=== PATIENT | female | born 1935 | race Caucasian/White ===

== ENCOUNTER 2019-12-28 02:16 | Inpatient (IN) ==
[2019-12-28] MEDS ORDERED: *HR* FentaNYL (PF) 100 MCG/2 ML VIAL IVP STA (02:21)
[2019-12-28] MEDS ORDERED: 0.9 % Sodium Chloride 500 ML IVC ONE (02:21)
[2019-12-28 02:43] LABS: Basophils # 0.1 K/mcL (0.0-0.2); Basophils % 1.3 %; Eosinophils # 0.1 K/mcL (0.0-0.6); Eosinophils % 1.3 %; Hematocrit 47.3 % (35.3-44.9); Hemoglobin 15.2 g/dL (11.5-15.4); INR 2.4; Immature Granulocytes % 0.4 % (0-4); Lymphocytes # 1.6 K/mcL (0.6-4.6); Mean Corpuscular HGB Conc 32.1 g/dL (31.6-35.5); Mean Corpuscular Hemoglobin 30.4 pg (28.0-33.3); Mean Corpuscular Volume 94.6 fL (83.0-100.0); Mean Platelet Volume 10.8 fL (9.4-12.4); Monocytes # 0.4 K/mcL (0.0-1.3); Neutrophils # 2.5 K/mcL (1.6-8.9); Platelet Count 239 K/mcL (140-400); Prothrombin Time 27.4 Seconds (9.4-12.1); Red Cell Distribution Width 13.5 % (11.5-14.5); White Blood Count 4.6 K/mcL (4.3-11.1)
[2019-12-28 03:03] LABS: Calcium 9.1 mg/dL (8.6-10.3); Potassium 3.3 mEq/L (3.5-5.1)
[2019-12-28] MEDS ORDERED: Ondansetron 4 MG/2 ML VIAL IVP PRN (04:05)
[2019-12-28] MEDS ORDERED: Naloxone 0.4 MG/ML INJ IVP PRN (04:05)
[2019-12-28] MEDS ORDERED: 0.9 % Sodium Chloride 1,000 ML IVC SCH (04:15)
[2019-12-28 06:40] LABS: Adenovirus Not Detected (Not Detect); Coronavirus 229E Not Detected (Not Detect); Coronavirus HKU1 Not Detected (Not Detect); Coronavirus NL63 Not Detected (Not Detect); Coronavirus OC43 Not Detected (Not Detect)
[2019-12-28 06:42] LABS: Bordetella Pertussis Not Detected (Not Detect); Chlamydophila pneumoniae Not Detected (Not Detect); Human Metapneumovirus Not Detected (Not Detect); Human Rhinovirus/Enterovirus Not Detected (Not Detect); Influenza A Subtype 2009 H1 Not Detected (Not Detect); Influenza B Not Detected (Not Detect); Mycoplasma pneumoniae Not Detected (Not Detect); Parainfluenza Virus 1 Not Detected (Not Detect); Parainfluenza Virus 2 Not Detected (Not Detect); Parainfluenza Virus 3 Not Detected (Not Detect); Parainfluenza Virus 4 Not Detected (Not Detect); Respiratory Syncytial Virus Not Detected (Not Detect)
[2019-12-28] MEDS ORDERED: *HR* Phytonadione 10 MG/ML AMPUL SQ ONE (07:29)
[2019-12-28 13:02] LABS: INR 2.8; Prothrombin Time 31.9 Seconds (9.4-12.1)
[2019-12-28] MEDS ORDERED: 0.9 % Sodium Chloride 250 ML IVC SCH (14:00)
[2019-12-28] MEDS: Metoprolol XL (24 HR) Succ 50 MG TAB.ER.24H PO SCH (16:15)
[2019-12-28] MEDS ORDERED: *HR* Phytonadione 5 MG TABLET PO ONE (18:41)
[2019-12-28 22:12] LABS: BUN/Creatinine Ratio 18 (6-26); Blood Urea Nitrogen 14 mg/dL (8-23); Calcium 8.8 mg/dL (8.6-10.3); Carbon Dioxide 27 mEq/L (23-29); Chloride 107 mEq/L (98-107); Glucose 152 mg/dL (70-105); Osmolality,Calculated 293 (280-300); Potassium 3.8 mEq/L (3.5-5.1); Sodium 140 mEq/L (136-145); eGFR For African Americans > 60 (> 60); eGFR For Non-African Americans > 60 (> 60)
[2019-12-29 03:07] LABS: Basophils % 0.8 %; Eosinophils # 0.1 K/mcL (0.0-0.6); Eosinophils % 2.1 %; Hematocrit 46.8 % (35.3-44.9); Hemoglobin 14.5 g/dL (11.5-15.4); Immature Granulocytes % 0.2 % (0-4); Lymphocytes # 0.9 K/mcL (0.6-4.6); Mean Corpuscular Hemoglobin 29.1 pg (28.0-33.3); Mean Corpuscular Volume 93.8 fL (83.0-100.0); Mean Platelet Volume 10.8 fL (9.4-12.4); Monocytes # 0.5 K/mcL (0.0-1.3); Neutrophils # 3.6 K/mcL (1.6-8.9); Platelet Count 209 K/mcL (140-400); Red Blood Count 4.99 M/mcL (3.82-4.97); Red Cell Distribution Width 13.6 % (11.5-14.5); Segmented Neutrophils % 68.9 %; White Blood Count 5.2 K/mcL (4.3-11.1)
[2019-12-29 03:12] LABS: INR 2.1; Prothrombin Time 24.4 Seconds (9.4-12.1)
[2019-12-29 03:27] LABS: BUN/Creatinine Ratio 20 (6-26); Blood Urea Nitrogen 19 mg/dL (8-23); Calcium 8.8 mg/dL (8.6-10.3); Carbon Dioxide 25 mEq/L (23-29); Chloride 108 mEq/L (98-107); Glucose 119 mg/dL (70-105); Osmolality,Calculated 291 (280-300); Potassium 3.9 mEq/L (3.5-5.1); Sodium 139 mEq/L (136-145); eGFR For African Americans > 60 (> 60); eGFR For Non-African Americans 57 (> 60)
[2019-12-29 07:17] LABS: Bilirubin,Urine Negative (Negative); Blood,Urine Moderate (Negative); Clarity,Urine Clear (Clear); Color,Urine Yellow (Yellow); Glucose,Urine (UA) Normal (Normal); Ketones,Urine Negative (Negative); Leukocyte Esterase,Urine Trace (Negative); Mucus,Urine Few per lpf (None-Few); Nitrite,Urine Negative (Negative); Protein,Urine Trace mg/dL (Neg-Trace); Specific Gravity,Urine 1.025 (1.010-1.025); Squamous Epithelial Cell,Urine Few per hpf (None-Few); Urobilinogen,Urine Normal (Normal)
[2019-12-29] MEDS: Metoprolol XL (24 HR) Succ 50 MG TAB.ER.24H PO SCH (08:24)
[2019-12-29] MEDS: DilTIAZem CD (24hr) 120 MG CAP.ER.24H PO SCH ×2 (08:25→14:08)
[2019-12-29] MEDS ORDERED: *HR* LORazepam 1 MG TABLET PO SCH (09:00)
[2019-12-29] MEDS ORDERED: Fluticasone Propionate Nasal 50 MCG/SPRAY BOTTLE NS SCH (09:00)
[2019-12-29] MEDS ORDERED: Pregabalin 75 MG CAPSULE PO SCH (09:00)
[2019-12-29] MEDS ORDERED: *HR* Metoprolol 5 MG/5 ML VIAL IVP ONE ×2 (09:22→11:51)
[2019-12-29] MEDS ORDERED: *HR* FentaNYL (PF) 100 MCG/2 ML VIAL IVP ONE (11:45)
[2019-12-29] MEDS ORDERED: *HR* HYDROmorphone (PF) 1 MG/ML SYRINGE IVP ONE (14:10)
[2019-12-29] MEDS ORDERED: 0.9 % Sodium Chloride 1,000 ML IVC SCH (14:15)
[2019-12-29] MEDS ORDERED: DilTIAZem 50 MG/50 ML IV.SOLN IVC SCH (16:00)
[2019-12-29] MEDS ORDERED: Lidocaine -MPF 2% 2 ML VIAL ONE (17:50)
[2019-12-29] MEDS ORDERED: Dexamethasone 4 MG/ML VIAL ONE (17:50)
[2019-12-29] MEDS ORDERED: *HR* FentaNYL (PF) 100 MCG/2 ML VIAL ONE (17:50)
[2019-12-29] MEDS ORDERED: *HR* Midazolam HCl 2 MG/2 ML VIAL ONE (17:50)
[2019-12-29] MEDS ORDERED: Ondansetron 4 MG/2 ML VIAL ONE (17:50)
[2019-12-29] MEDS ORDERED: Clindamycin 900 MG/50 ML 900 MG/50 ML IV.SOLN IVPB ONE (17:50)
[2019-12-29] MEDS ORDERED: *HR* Propofol 200 MG/20 ML VIAL IVP ONE (17:50)
[2019-12-29] MEDS ORDERED: Lidocaine HCL 4 ML Topical Solution (Laryng-O-Jet Kit Sterile Pak) TP ONE (17:56)
[2019-12-29] MEDS ORDERED: *HR* PHENYLEPHRINE 1,000 MCG/10 ML SYRINGE IVP ONE ×2 (18:16→18:49)
[2019-12-29] MEDS ORDERED: *HR* Enoxaparin 40 MG/0.4 ML SYRINGE SQ ONE (18:33)
[2019-12-29] MEDS ORDERED: Ondansetron 4 MG/2 ML VIAL IVP PRN (19:58)
[2019-12-29] MEDS ORDERED: Naloxone 0.4 MG/ML INJ IVP PRN (19:58)
[2019-12-29] MEDS ORDERED: *HR* Warfarin 2.5 MG TABLET PO SCH (20:00)
[2019-12-29] MEDS: DilTIAZem 50 MG/50 ML IV.SOLN IVC SCH (23:08)
[2019-12-29] MEDS: *HR* LORazepam 1 MG TABLET PO SCH (23:38)
[2019-12-29] MEDS: Clindamycin 900 MG/50 ML 900 MG/50 ML IV.SOLN IVPB SCH (23:40)
[2019-12-30 05:02] LABS: Basophils % 0.1 %; Hematocrit 44.3 % (35.3-44.9); Immature Granulocytes % 0.6 % (0-4); Lymphocytes # 0.5 K/mcL (0.6-4.6); Lymphocytes % 5.6 %; Mean Corpuscular HGB Conc 31.6 g/dL (31.6-35.5); Mean Corpuscular Hemoglobin 29.8 pg (28.0-33.3); Mean Corpuscular Volume 94.3 fL (83.0-100.0); Mean Platelet Volume 11.1 fL (9.4-12.4); Monocytes # 0.6 K/mcL (0.0-1.3); Neutrophils # 7.5 K/mcL (1.6-8.9); Platelet Count 164 K/mcL (140-400); Red Cell Distribution Width 13.5 % (11.5-14.5); Segmented Neutrophils % 86.7 %; White Blood Count 8.6 K/mcL (4.3-11.1)
[2019-12-30 05:08] LABS: INR 1.3
[2019-12-30 05:11] LABS: Activated Partial Thrombo Time 30.3 Seconds (26.0-36.0)
[2019-12-30] MEDS: DilTIAZem 50 MG/50 ML IV.SOLN IVC SCH (05:11)
[2019-12-30 05:12] LABS: BUN/Creatinine Ratio 20 (6-26); Blood Urea Nitrogen 18 mg/dL (8-23); Calcium 8.4 mg/dL (8.6-10.3); Carbon Dioxide 22 mEq/L (23-29); Chloride 107 mEq/L (98-107); Glucose 149 mg/dL (70-105); Osmolality,Calculated 291 (280-300); Potassium 4.2 mEq/L (3.5-5.1); Sodium 138 mEq/L (136-145); eGFR For African Americans > 60 (> 60); eGFR For Non-African Americans 60 (> 60)
[2019-12-30] MEDS ORDERED: *HR* Heparin 5,000 UNIT/ML VIAL IVP PRN ×2 (05:15)
[2019-12-30 05:30] LABS: Heparin anti-factor XA UFH 0.21 IU/mL (0.30-0.70)
[2019-12-30] MEDS: Heparin 25,000UNIT/250ML 1/2NS 25,000 UNIT/250 ML IV.SOLN IVC SCH (06:09)
[2019-12-30] MEDS: Clindamycin 900 MG/50 ML 900 MG/50 ML IV.SOLN IVPB SCH (08:35)
[2019-12-30] MEDS: DilTIAZem CD (24hr) 120 MG CAP.ER.24H PO SCH (08:37)
[2019-12-30] MEDS: Pregabalin 75 MG CAPSULE PO SCH (08:39)
[2019-12-30] MEDS: Metoprolol XL (24 HR) Succ 50 MG TAB.ER.24H PO SCH (08:39)
[2019-12-30] MEDS: Fluticasone Propionate Nasal 50 MCG/SPRAY BOTTLE NS SCH (08:41)
[2019-12-30] MEDS ORDERED: *HR* Metoprolol 5 MG/5 ML VIAL IVP PRN (12:44)
[2019-12-30 15:07] LABS: Albumin 3.2 g/dL (3.5-5.7)
[2019-12-30] MEDS ORDERED: 0.9 % Sodium Chloride 500 ML IV ONE (15:31)
[2019-12-30] MEDS ORDERED: Isovue-370 500 ML BOTTLE IVP ONE (17:06)
[2019-12-30 17:16] LABS: Magnesium 1.6 mg/dL (1.6-2.6); Phosphorous 3.6 mg/dL (2.7-4.5)
[2019-12-30 17:37] LABS: Hematocrit 38.1 % (35.3-44.9)
[2019-12-30 17:39] LABS: Hemoglobin 12.1 g/dL (11.5-15.4)
[2019-12-30] MEDS ORDERED: *HR* Warfarin 2.5 MG TABLET PO ONE (18:00)
[2019-12-30] MEDS ORDERED: Warfarin perPT PO PRN (18:00)
[2019-12-30] MEDS ORDERED: Albumin 25% 25gram/100mL 25 GM/100 ML IV.SOLN IVPB ONE (19:03)
[2019-12-30] MEDS: *HR* LORazepam 1 MG TABLET PO SCH (23:46)
[2019-12-31 07:31] LABS: Hemoglobin 11.4 g/dL (11.5-15.4)
[2019-12-31 07:33] LABS: Immature Platelets 8.8 % (1.1-6.1); Mean Corpuscular HGB Conc 30.8 g/dL (31.6-35.5); Mean Corpuscular Hemoglobin 29.5 pg (28.0-33.3); Mean Corpuscular Volume 95.9 fL (83.0-100.0); Mean Platelet Volume 11.4 fL (9.4-12.4); Red Blood Count 3.86 M/mcL (3.82-4.97); Red Cell Distribution Width 13.7 % (11.5-14.5); White Blood Count 5.3 K/mcL (4.3-11.1)
[2019-12-31 07:36] LABS: INR 1.4; Prothrombin Time 15.4 Seconds (9.4-12.1)
[2019-12-31 07:52] LABS: BUN/Creatinine Ratio 28 (6-26); Blood Urea Nitrogen 28 mg/dL (8-23); Calcium 8.5 mg/dL (8.6-10.3); Carbon Dioxide 23 mEq/L (23-29); Chloride 106 mEq/L (98-107); Glucose 100 mg/dL (70-105); Osmolality,Calculated 288 (280-300); Potassium 3.8 mEq/L (3.5-5.1); Sodium 136 mEq/L (136-145); eGFR For African Americans > 60 (> 60); eGFR For Non-African Americans 52 (> 60)
[2019-12-31] MEDS: Heparin 25,000UNIT/250ML 1/2NS 25,000 UNIT/250 ML IV.SOLN IVC SCH (08:05)
[2019-12-31] MEDS: Pregabalin 75 MG CAPSULE PO SCH (08:06)
[2019-12-31] MEDS: DilTIAZem CD (24hr) 120 MG CAP.ER.24H PO SCH (08:06)
[2019-12-31] MEDS: Metoprolol XL (24 HR) Succ 50 MG TAB.ER.24H PO SCH (08:07)
[2019-12-31] MEDS ORDERED: Perflutren Lipid Microsphere 1.3 ML in 0.9 % Sodium Chloride 8.7 ML IVP PRN (08:37)
[2019-12-31] MEDS: Fluticasone Propionate Nasal 50 MCG/SPRAY BOTTLE NS SCH (14:35)
[2019-12-31] MEDS ORDERED: *HR* Warfarin 2.5 MG TABLET PO ONE (18:00)
[2019-12-31] MEDS: *HR* LORazepam 1 MG TABLET PO SCH (20:47)
[2020-01-01 04:54] LABS: Hematocrit 35.8 % (35.3-44.9); Hemoglobin 11.2 g/dL (11.5-15.4); Mean Corpuscular HGB Conc 31.3 g/dL (31.6-35.5); Mean Corpuscular Hemoglobin 29.7 pg (28.0-33.3); Mean Platelet Volume 11.8 fL (9.4-12.4); Platelet Count 134 K/mcL (140-400); Red Blood Count 3.77 M/mcL (3.82-4.97); Red Cell Distribution Width 13.6 % (11.5-14.5); White Blood Count 4.4 K/mcL (4.3-11.1)
[2020-01-01 05:13] LABS: BUN/Creatinine Ratio 29 (6-26); Blood Urea Nitrogen 23 mg/dL (8-23); Calcium 8.6 mg/dL (8.6-10.3); Carbon Dioxide 24 mEq/L (23-29); Chloride 107 mEq/L (98-107); Glucose 108 mg/dL (70-105); Osmolality,Calculated 290 (280-300); Potassium 3.7 mEq/L (3.5-5.1); Sodium 138 mEq/L (136-145); eGFR For African Americans > 60 (> 60); eGFR For Non-African Americans > 60 (> 60)
[2020-01-01 05:14] LABS: INR 1.2; Prothrombin Time 13.3 Seconds (9.4-12.1)
[2020-01-01] MEDS ORDERED: *HR* Enoxaparin 80 MG/0.8 ML SYRINGE SQ SCH (08:15)
[2020-01-01] MEDS: Pregabalin 75 MG CAPSULE PO SCH (10:13)
[2020-01-01 10:14] VITALS: BP 120/83
[2020-01-01] MEDS: Metoprolol XL (24 HR) Succ 50 MG TAB.ER.24H PO SCH (10:14)
[2020-01-01] MEDS: DilTIAZem CD (24hr) 120 MG CAP.ER.24H PO SCH (10:14)
[2020-01-01] MEDS: Fluticasone Propionate Nasal 50 MCG/SPRAY BOTTLE NS SCH (10:32)
[2020-01-01] MEDS ORDERED: *HR* Warfarin 5 MG TABLET PO ONE (18:00)
== END 2020-01-01 18:05 | DRG 480 ==
LOC: EMEROOARM 02:16 → 3NENU 02:16 → SUATTDRO 04:04 → 3NENU 07:44
PROVIDERS: ADMIT Internal Medicine; ATTEND Internal Medicine